=== PATIENT | female | born 1945 | race Caucasian/White ===

== ENCOUNTER 2018-06-23 21:51 | Emergency (ER) | payer MEDICARE, OTHER ==
[~2018-06-23] VITALS: Ht 162.6 cm; Wt 82.1 kg
[~2018-06-23 21:51] MED LIST: ATOR40TA59 PO; DULA0.75 SQ; GLIP10TA13 PO; HYDR12.53 PO; LOSA50TA7 PO; METF500T16 PO
[2018-06-23] MEDS ORDERED: amLODIPine BESYLATE 5 MG TABLET PO ONE (22:30)
[2018-06-23] MEDS ORDERED: ASPIRIN CHEWABLE 81 MG TABLET. PO ONE (22:30)
[2018-06-23] MEDS ORDERED: LORazepam 1 MG TABLET PO ONE (22:45)
[2018-06-23 22:55] LABS: BASO % 0 % (0-3); EOS # 0.1 x10^3/uL (0.0-0.7); EOS % 1 % (0-3); HEMATOCRIT 43.9 % (36.0-47.0); HEMOGLOBIN 15.2 g/dL (12.0-15.5); LYMPH # 1.5 x10^3/uL (1.0-4.8); LYMPH % 12 % (24-48); MEAN CORPUSCULAR HEMOGLOBIN 31 pg (25-35); MEAN CORPUSCULAR HGB CONC 35 g/dL (31-37); MEAN CORPUSCULAR VOLUME 91 fL (79-100); MONO # 0.8 x10^3/uL (0.0-1.1); MONO % 7 % (0-9); NEUT # 9.9 x10^3uL (1.8-7.7); NEUT % 80 % (31-73); PLATELET COUNT 220 x10^3/uL (140-400); RED BLOOD COUNT 4.85 x10^6/uL (3.50-5.40); RED CELL DISTRIBUTION WIDTH 13.6 % (11.5-14.5); WHITE BLOOD COUNT 12.4 x10^3/uL (4.0-11.0)
[2018-06-23 23:05] LABS: CALCIUM 10.7 mg/dL (8.5-10.1); GFR 54.5; POTASSIUM 4.2 mmol/L (3.5-5.1)
[2018-06-23 23:11] LABS: ALBUMIN/GLOBULIN RATIO 1.2 (1.0-1.7); TOTAL BILIRUBIN 0.4 mg/dL (0.2-1.0); TOTAL PROTEIN 7.4 g/dL (6.4-8.2)
[2018-06-23] MEDS ORDERED: cloNIDine HCL 0.1 MG TABLET PO ONE (23:30)
[2018-06-23 23:45] VITALS: BP 148/80
--- NOTE | 2018-06-24 00:04 | PHYS DOC ---
Past Medical History Past Medical History: Anxiety, Asthma, Diabetes-Type II, High Cholesterol, Hypertension Past Surgical History: Other Additional Past Surgical Histo: JAW SX SECONDARY TO FX Alcohol Use: None Drug Use: None Adult General Chief Complaint Chief Complaint: HYPERTENSION HPI HPI Patient is a 73 year old [ female was presenting with elevated blood pressure. She says that she can feel her blood pressure slowly going up throughout the day she feels flushed with palpitation she feels tightness in her chest that feels better when she puts her hand on it. She says she has no chest pain blood pressure was high up into the 180s. Review of Systems Review of Systems Constitutional: Denies fever or chills [] Eyes: Denies change in visual acuity, redness, or eye pain [] HENT: Denies nasal congestion or sore throat [] GI: Denies abdominal pain, nausea, vomiting, bloody stools or diarrhea [] : Denies dysuria or hematuria [] Musculoskeletal: Denies back pain or joint pain [] Integument: Denies rash or skin lesions [] Neurologic: Denies headache, focal weakness or sensory changes [] Endocrine: Denies polyuria or polydipsia [] All other systems were reviewed and found to be within normal limits, except as documented in this note. Current Medications Current Medications Current Medications Medications (Trade) Dose Ordered Sig/Librado Start Time Stop Time Status Last Admin Dose Admin Amlodipine Besylate (Norvasc) 10 mg 1X ONCE 06/23/18 22:30 06/23/18 22:31 DC 06/23/18 22:51 10 MG Aspirin (Children'S Aspirin) 324 mg 1X ONCE 06/23/18 22:30 06/23/18 22:31 DC 06/23/18 22:50 324 MG Clonidine HCl (Catapres) 0.2 mg 1X ONCE 06/23/18 23:30 06/23/18 23:31 DC 06/23/18 23:35 0.2 MG Lorazepam (Ativan) 1 mg 1X ONCE 06/23/18 22:45 06/23/18 22:46 DC Allergies Allergies Allergies Coded Allergies Type Severity Reaction Last Updated Verified aminophylline Adverse Reaction Intermediate Anxiety 10/29/15 Yes codeine Adverse Reaction Intermediate Nausea and Vomiting 10/29/15 Yes Physical Exam Physical Exam Constitutional: Well developed, well nourished, no acute distress, non-toxic appearance. [] HENT: Normocephalic, atraumatic, bilateral external ears normal, oropharynx moist, no oral exudates, nose normal. [] Eyes: PERRLA, EOMI, conjunctiva normal, no discharge. [] Neck: Normal range of motion, no tenderness, supple, no stridor. [] Cardiovascular:Heart rate regular rhythm, no murmur [] Lungs & Thorax: Bilateral breath sounds clear to auscultation [] Abdomen: Bowel sounds normal, soft, no tenderness, no masses, no pulsatile masses. [] Skin: Warm, dry, no erythema, no rash. [] Back: No tenderness, no CVA tenderness. [] Extremities: No tenderness, no cyanosis, no clubbing, ROM intact, no edema. [] Neurologic: Alert and oriented X 3, normal motor function, normal sensory function, no focal deficits noted. [] Psychologic: Affect normal, judgement normal, mood anxious Current Patient Data Vital Signs Vital Signs Date Time Temp Pulse Resp B/P (MAP) Pulse Ox O2 Delivery O2 Flow Rate FiO2 06/23/18 23:35 90 190/70 06/23/18 22:10 97.9 24 98 Room Air 97.9 Lab Values Laboratory Tests Test 06/23/18 22:44 White Blood Count 12.4 x10^3/uL (4.0-11.0) H Red Blood Count 4.85 x10^6/uL (3.50-5.40) Hemoglobin 15.2 g/dL (12.0-15.5) Hematocrit 43.9 % (36.0-47.0) Mean Corpuscular Volume 91 fL (79-100) Mean Corpuscular Hemoglobin 31 pg (25-35) Mean Corpuscular Hemoglobin Concent 35 g/dL (31-37) Red Cell Distribution Width 13.6 % (11.5-14.5) Platelet Count 220 x10^3/uL (140-400) Neutrophils (%) (Auto) 80 % (31-73) H Lymphocytes (%) (Auto) 12 % (24-48) L Monocytes (%) (Auto) 7 % (0-9) Eosinophils (%) (Auto) 1 % (0-3) Basophils (%) (Auto) 0 % (0-3) Neutrophils # (Auto) 9.9 x10^3uL (1.8-7.7) H Lymphocytes # (Auto) 1.5 x10^3/uL (1.0-4.8) Monocytes # (Auto) 0.8 x10^3/uL (0.0-1.1) Eosinophils # (Auto) 0.1 x10^3/uL (0.0-0.7) Basophils # (Auto) 0.0 x10^3/uL (0.0-0.2) Sodium Level 139 mmol/L (136-145) Potassium Level 4.2 mmol/L (3.5-5.1) Chloride Level 103 mmol/L (98-107) Carbon Dioxide Level 22 mmol/L (21-32) Anion Gap 14 (6-14) Blood Urea Nitrogen 30 mg/dL (7-20) H Creatinine 1.0 mg/dL (0.6-1.0) Estimated GFR (Cockcroft-Gault) 54.5 BUN/Creatinine Ratio 30 (6-20) H Glucose Level 178 mg/dL (70-99) H Calcium Level 10.7 mg/dL (8.5-10.1) H Total Bilirubin 0.4 mg/dL (0.2-1.0) Aspartate Amino Transferase (AST) 17 U/L (15-37) Alanine Aminotransferase (ALT) 26 U/L (14-59) Alkaline Phosphatase 127 U/L (46-116) H Troponin I Quantitative < 0.017 ng/mL (0.000-0.055) Total Protein 7.4 g/dL (6.4-8.2) Albumin 4.0 g/dL (3.4-5.0) Albumin/Globulin Ratio 1.2 (1.0-1.7) Laboratory Tests 06/23/18 22:44 Laboratory Tests 06/23/18 22:44 EKG EKG EKG shows normal sinus rhythm rate of 98 no acute ischemic changes noted interpreted by me the time of encounter intervals appear normal.[] Radiology/Procedures Radiology/Procedures [] Impressions: Chest x-ray negative probably atelectasis at the left lung base Course & Med Decision Making Course & Med Decision Making Pertinent Labs and Imaging studies reviewed. (See chart for details) []This is a 73-year-old female who is presenting to the emergency room with chief complaint elevated blood pressure she has felt some palpitations as well as flushing. Troponin negative EKG looked fine blood pressure down to 148 range after treatment. I counseled the patient in detail about the importance of checking her blood pressure once a day return precautions to the emergency room for blood pressures that are over 200 or any new or concerning symptoms otherwise follow-up with primary care doctor next week for recheck. Dragon Disclaimer Dragon Disclaimer This electronic medical record was generated, in whole or in part, using a voice recognition dictation system. Departure Departure Impression: Primary Impression: Elevated blood pressure reading Disposition: HOME, SELF-CARE Condition: IMPROVED Patient Instructions: Hypertension, [id number] RICHARD COPELAND MD Jun 24, 2018 00:04
--- NOTE | 2018-06-24 09:34 | RAD ---
EXAM: PORTABLE CHEST 1V DATE: 06/23/2018 10:36 PM INDICATION: HTN, short of breath and dizzy today COMPARISON: No Prior FINDINGS: There is mild rightward deviation of the trachea suspicious for thoracic inlet mass or enlarged thyroid. The heart is not enlarged. Mediastinal and hilar contours are normal. No focal parenchymal airspace opacity. No pleural effusion or pneumothorax. Old posterolateral right rib fractures are seen. IMPRESSION: 1. There is mild rightward deviation of the trachea suspicious for thoracic inlet mass or enlarged thyroid. This can be further assessed by a CT chest and/or thyroid ultrasound. 2. Otherwise no evidence of acute cardiopulmonary process. Electronically signed by: Rey James MD (06/24/2018 9:31 AM) [facility]
--- NOTE | 2018-06-25 09:34 | EKG ---
[facility] [address] [place] [address] Test Date: 2018-06-23 Test Time: 22:40:37 Pat Name: MARK COBURN Department: Room: Gender: F Director Career Services: : 1945 Requested By: RICHARD COPELAND Order Number: [id number] Reading MD: Alvarez Lam MD Measurements Intervals [place] Rate: 98 P: 44 ID: [id number] QRS: -4 QRSD: 86 T: 22 QT: 344 QTc: 441 Interpretive Statements SINUS RHYTHM Electronically Signed On 06-27-2018 12:10:36 CDT by Alvarez Lam MD
== END 2018-06-24 00:12 | disposition home or self-care (01) ==
LOC: ER 21:51
DX: R03.0 Elevated blood-pressure reading, without diagnosis of hypertension (principal); R00.2 Palpitations; R07.89 Other chest pain; E78.00 Pure hypercholesterolemia, unspecified; E11.9 Type 2 diabetes mellitus without complications; I10 Essential (primary) hypertension; J45.909 Unspecified asthma, uncomplicated; F41.9 Anxiety disorder, unspecified; Z88.5 Allergy status to narcotic agent
CPT/HCPCS: 36415; 71045; 80053; 84484; 85025; 93005; 99285-25

== ENCOUNTER → 2018-08-01 | Outpatient (CLI) | payer MEDICARE, OTHER ==
[~2018-08-01] MED LIST changes: +REGADENOSON 0.4 MG/5 ML DISP.SYRIN. IV ONE
--- NOTE | 2018-08-01 11:07 | CARD ---
MR#: [id number] Date of Study: 08/01/2018 Ordering Physician: QUENTIN NORMAN, Referring Physician: QUENTIN NORMAN, Tech: Ruthie Mccloud APPROVED REPORT EXAM: Two-dimensional and M-mode echocardiogram with Doppler and color Doppler. Other Information Quality : AverageHR: 83bpm INDICATION Palpitations RISK FACTORS Hypertension Hyperlipidemia Diabetes 2D DIMENSIONS RVDd1.7 (2.9-3.5cm)Left Atrium(2D)3.8 (1.6-4.0cm) IVSd1.1 (0.7-1.1cm)Aortic Root(2D)2.9 (2.0-3.7cm) LVDd4.5 (3.9-5.9cm)LVOT Diameter2.2 (1.8-2.4cm) PWd1.1 (0.7-1.1cm)LVDs2.5 (2.5-4.0cm) FS (%) 45.2 %SV70.0 ml LVEF(%)76.7 (>50%) Aortic Valve AoV Peak Emre.140.0cm/sAoV VTI32.6cm AO Peak GR.7.8mmHgLVOT Peak Emre.95.8cm/s AO Mean GR.5mmHgAVA (VMAX)2.53cm2 Mitral Valve MV E Vspgasqk38.9cm/sMV DECEL [id number] MV A Ejjolwjv650.5cm/sE/A Ratio0.7 Pulmonary Valve PV Peak Usdlqmeo90.7cm/s Pulmonary Vein PVa [id number] LEFT VENTRICLE The left ventricle is normal size. There is normal left ventricular wall thickness. The left ventricu lar systolic function is normal. The Ejection Fraction is 60-65%. There is normal LV segmental wall m otion. Transmitral Doppler flow pattern is Grade I-abnormal relaxation pattern. RIGHT VENTRICLE The right ventricle is normal size. There is normal right ventricular wall thickness. The right ventr icular systolic function is normal. ATRIA The left atrium size is normal. The right atrium size is normal. The interatrial septum is intact wit h no evidence for an atrial septal defect or patent foramen ovale as noted on 2-D or Doppler imaging. AORTIC VALVE The aortic valve is not well visualized. Doppler and Color Flow revealed trace aortic regurgitation. Calculated aortic valve area is 3 cm2 with maximum pressure gradient of 8 mmHg and mean pressure grad ient of 6 mmHg. MITRAL VALVE The mitral valve is thickened but opens well. There is no mitral valve stenosis. Doppler and Color-fl ow revealed trace mitral regurgitation. TRICUSPID VALVE The tricuspid valve is not well visualized. Doppler and Color Flow revealed no tricuspid valve regurg itation noted. There is no tricuspid valve stenosis. PULMONIC VALVE The pulmonic valve is not well visualized. Doppler and Color Flow revealed no pulmonic valvular regur gitation. GREAT VESSELS The aortic root is normal in size. The IVC is normal in size and collapses >50% with inspiration. PERICARDIAL EFFUSION There is no evidence of significant pericardial effusion. Critical Notification Critical Value: No <Conclusion> The left ventricular systolic function is normal. The Ejection Fraction is 60-65%. There is normal LV segmental wall motion. Transmitral Doppler flow pattern is Grade I-abnormal relaxation pattern. Trace mitral regurgitation. There is no evidence of significant pericardial effusion. Signed by : Quentin Norman, Electronically Approved : 08/01/2018 11:07:02
--- NOTE | 2018-08-01 16:29 | RAD ---
MR#: [id number] Date of Study: 08/01/2018 Ordering Physician: QUENTIN RICO Referring Physician: JOHN FERNANDO Tech: RT Gentry (R) (N) APPROVED REPORT Test Type: Pharmacological Stress Nurse/Tech: Eugenio Flores RN Test Indications: HTN, Palpitations Cardiac History: HTN, DM, Medications: See Electronic Medical Record Medical History: See Electronic Medical Record Resting ECG: SR Resting Heart Rate: 77 bpm Resting Blood Pressure: 156/63mmHg Pretest Chest Pain: No chest pain Nurse/Tech Notes Lungs CTA, S1S2 Consent: The procedure was explained to the patient in lay terms. Informed consent was witnessed. Rudy eout was entered into [employer]. History and Stress Test performed by Eugenio Flores RN Pharm. Details Pharmacologic stress testing was performed using 0.4mg per 5ml of regadenoson given intravenously ove r 7-10 seconds. Stress Symptoms Dyspnea, Flushing, no chest pain POST EXERCISE Reason for Termination: Infusion complete Max HR: 122 bpm Max Blood Pressure: 157/70mmHg Blood Pressure response to exercise: Normal blood pressure response during stress. Heart Rate response to exercise: normal response Chest Pain: No. Arrhythmia: No. ST Change: No. INTERPRETATION Stress EKG Conclusion: No evidence of stress induced EKG changes. Imaging Protocol IMAGE PROTOCOL: Rest Tc-99m/stress Tc-99m 1 day Rest: Stress: Viability: Radiopharm.Tc99m QgwpsqmnwVi65p Sestamibi Dose10.5mCi 35mCi Duration 13.5min. 13.5min. Img Date 08/01/2018 08/01/2018 Inj-Img [id number]. 60min. Rest Admin Site:IV - Right AntecubitalAdministrator:RT Gentry (R)(N) Stress Admin Site: IV - Right AntecubitalAdministrator: RT Tanvir (R)(N) STRESS DATA End Diast. Vol.46.0mlAv. Heart Tfkp489.0bpm LVEDV index BSA25.0mlCardiac Output0.0L/min End Syst. Vol.1.0mlCO Index BSA0.0L/min LVESV index BSA0.0mlMyocardial Mass92.0g Eject. Isbbuypp82.0% Stress Scores Regional WT0.00Summed WT0.00 Regional WM0.00Summed WM0.00 The rest and stress images show normal perfusion, normal contraction and thickening. LV Perf. Quant 17 Seg. SSS0.00 17 Seg. SRS1.00 17 Seg. SDS0.00 Stress Defect Extent (% LAD)0.00Rest Defect Extent (% LAD)0.00Rev. Defect Extent (% LAD)0.00 Stress Defect Extent (% LCX) 0.00Rest Defect Extent (% LCX)0.00Rev. Defect Extent (% LCX)0.00 Stress Defect Extent (% RCA)0.00Rest Defect Extent (% RCA)0.00Rev. Defect Extent (% RCA)0.00 Stress Defect Extent (% CHUCK)0.00Rest Defect Extent (% CHUCK)0.00Rev. Defect Extent (% CHUCK)0.00 Other Information Quality:Average Risk Assessment: Low Risk Conclusion 1. No evidence of EKG changes with stress testing. 2. Normal perfusion at stress/rest. 3. Low risk study. 4. EF > 60%. Signed by : Alvarez Lam, Electronically Approved : 08/01/2018 16:28:13
== END | disposition home or self-care (01) ==
LOC: NM 08:31
PROVIDERS: ATTEND Internal Medicine Cardiovascular Disease
DX: R00.2 Palpitations (principal); I10 Essential (primary) hypertension
CPT/HCPCS: 78452; 93017; 93225; 93306; 96374; 96375; 96376; A9500; J2785

== ENCOUNTER 2018-10-08 16:27 | Emergency (ER) | payer MEDICARE ==
[~2018-10-08] VITALS: Ht 162.6 cm; Wt 82.1 kg
[~2018-10-08 16:27] MED LIST changes: -HYDR12.53 PO; +HYDR12.575 PO; +LOSA-73 PO; -LOSA50TA7 PO; -REGADENOSON 0.4 MG/5 ML DISP.SYRIN. IV ONE
--- NOTE | 2018-10-08 17:06 | EKG ---
[facility] [address] [place] [address] Test Date: 2018-10-08 Test Time: 17:02:13 Pat Name: MARK COBURN Department: Room: Gender: F Cardroom Drawing Runner: TW : 1945 Requested By: DEREK JAVIER Order Number: [id number] Reading MD: Measurements Intervals [employer] Rate: 95 P: 27 MS: 172 QRS: -7 QRSD: 84 T: 12 QT: 342 QTc: 433 Interpretive Statements SINUS RHYTHM LEFTWARD AXIS OTHERWISE NORMAL ECG RI6.01 Compared to ECG 06/23/2018 22:40:37 Left-axis deviation now present
[2018-10-08 17:07] LABS: BILIRUBIN,URINE NEGATIVE (NEG); CLARITY,URINE CLEAR; COLOR,URINE YELLOW; NITRITE,URINE POSITIVE (NEG); PH,URINE 5.5; PROTEIN,URINE NEGATIVE (NEG-TRACE); UROBILINOGEN,URINE 0.2 mg/dL (0.2 mg/dL)
[2018-10-08 17:13] LABS: BASO % 1 % (0-3); EOS # 0.1 x10^3/uL (0.0-0.7); EOS % 2 % (0-3); HEMATOCRIT 42.9 % (36.0-47.0); HEMOGLOBIN 15.3 g/dL (12.0-15.5); LYMPH # 1.8 x10^3/uL (1.0-4.8); LYMPH % 24 % (24-48); MEAN CORPUSCULAR HEMOGLOBIN 33 pg (25-35); MEAN CORPUSCULAR HGB CONC 36 g/dL (31-37); MEAN CORPUSCULAR VOLUME 91 fL (79-100); MONO # 0.8 x10^3/uL (0.0-1.1); MONO % 10 % (0-9); NEUT # 4.9 x10^3uL (1.8-7.7); NEUT % 64 % (31-73); PLATELET COUNT 214 x10^3/uL (140-400); RED BLOOD COUNT 4.72 x10^6/uL (3.50-5.40); RED CELL DISTRIBUTION WIDTH 13.6 % (11.5-14.5); WHITE BLOOD COUNT 7.7 x10^3/uL (4.0-11.0)
--- NOTE | 2018-10-08 17:15 | PHYS DOC ---
Past Medical History Past Medical History: Anxiety, Asthma, Diabetes-Type II, High Cholesterol, Hypertension Past Surgical History: Other Additional Past Surgical Histo: JAW SX SECONDARY TO FX Alcohol Use: None Drug Use: None Adult General Chief Complaint Chief Complaint: ANXIETY/PANIC ATTACK HPI HPI Patient is a 73-year-old female who presents to the emergency department for evaluation. She states that for the past 3 months, she has been having symptoms that have not yielded a diagnosis. She states that at the beginning of June , she began experiencing episodes where she describes that she was having a "tremor", but more inside her body than without. She states she would have these episodes where she would suddenly feel anxious, sweaty, and her heart rate would increase. She went to see a fibre optic cable splicer, and had stress testing done , and was told that she simply had sinus tachycardia and was given propranolol. She states that she has had blood pressure for the past 15 or so years, concurrent with her diabetes, but she states that her blood pressure has been harder to control recently. She has not had any pain, denies any headache. She states that she has had some generalized vision changes over the past few days as well. She reports generalized blurry vision. She has not had any numbness or weakness, or shortness of breath. She states that she saw her primary care provider who referred her initially to a fibre optic cable splicer as above, and then to an freight flagman. She states she saw the freight flagman in June, who ordered some testing of her parathyroid (the patient states she was found to have hyperkalemia) as well as a 24-hour urine calcium as well as an ionized calcium. She states that her episodes have been happening somewhat more frequently and becoming more intense recently. She does presents to the emergency department for reevaluation of the same symptoms. She states that she has never had an anxiety problem in the past. While in the emergency department, the patient did develop a splotchy rash on the right hand dorsally, which appears to be numerous punctate macular lesions. This was not present on my initial assessment of the patient but did develop soon after I left the exam room after her initial evaluation. Review of Systems Review of Systems Constitutional: Denies fever or chills [] Eyes: Denies ocular discharge, redness, or eye pain [] HENT: Denies nasal congestion or sore throat [] Respiratory: Denies cough or shortness of breath [] Cardiovascular: No additional information not addressed in HPI [] GI: Denies abdominal pain, nausea, vomiting, bloody stools or diarrhea [] : Denies dysuria or hematuria [] Musculoskeletal: Denies back pain or joint pain [] Integument: Denies rash or skin lesions [] Neurologic: Denies headache, focal weakness or sensory changes [] Endocrine: Admits to polyuria and polydipsia [] All other systems were reviewed and found to be within normal limits, except as documented in this note. Current Medications Current Medications Current Medications Medications (Trade) Dose Ordered Sig/Librado Start Time Stop Time Status Last Admin Dose Admin Ceftriaxone Sodium (Rocephin) 1 gm 1X ONCE 10/08/18 18:00 10/08/18 18:01 DC Lorazepam (Ativan) 1 mg 1X ONCE 10/08/18 17:00 10/08/18 17:01 DC 10/08/18 17:09 1 MG Allergies Allergies Allergies Coded Allergies Type Severity Reaction Last Updated Verified aminophylline Adverse Reaction Intermediate Anxiety 10/29/15 Yes codeine Adverse Reaction Intermediate Nausea and Vomiting 10/29/15 Yes Physical Exam Physical Exam PHYSICAL EXAM: CONSTITUTIONAL: Well developed, well nourished HEAD: normocephalic, atraumatic EENT: PERRL, EOMI. Conjunctivae normal color, sclerae non-icteric; moist mucous membranes. NECK: Supple, non-tender; no meningismus. LUNGS: Lungs CTA, breathing even and unlabored. Normal air movement. HEART: Mild tachycardia, no murmur CHEST: No deformity; non-tender ABDOMEN: The abdomen is soft, and non-tender, no masses or bruits. EXTREM: Normal ROM; no deformity, no calf tenderness. Normal pulses palpable in all extremities. There is no pedal edema. SKIN: There is a diffuse punctate macular erythematous rash on the dorsal aspect of the right hand which developed during the ER evaluation. There is no other rash; no diaphoresis NEURO: Alert; normal speech and cognition; CN's grossly intact; strength grossly intact without focal deficit. Vision grossly intact. BACK: No CVA TTP. PSYCHIATRIC: The patient exhibits mildly anxious affect. Current Patient Data Vital Signs Vital Signs Date Time Temp Pulse Resp B/P (MAP) Pulse Ox O2 Delivery O2 Flow Rate FiO2 12/23/18 16:47 97.9 109 11 191/83 (119) 97 Room Air 97.9 Lab Values Laboratory Tests Test 10/08/18 16:36 10/08/18 17:05 Urine Collection Type Unknown Urine Color Yellow Urine Clarity Clear Urine pH 5.5 Urine Specific Herman >=1.030 Urine Protein Negative mg/dL (NEG-TRACE) Urine Glucose (UA) >=1000 mg/dL (NEG) Urine Ketones (Stick) Negative mg/dL (NEG) Urine Blood Moderate (NEG) Urine Nitrite Positive (NEG) Urine Bilirubin Negative (NEG) Urine Urobilinogen Dipstick 0.2 mg/dL (0.2 mg/dL) Urine Leukocyte Esterase Small (NEG) Urine RBC 6-10 /HPF (0-2) Urine WBC >40 /HPF (0-4) Urine Squamous Epithelial Cells Mod /LPF Urine Bacteria Many /HPF (0-FEW) White Blood Count 7.7 x10^3/uL (4.0-11.0) Red Blood Count 4.72 x10^6/uL (3.50-5.40) Hemoglobin 15.3 g/dL (12.0-15.5) Hematocrit 42.9 % (36.0-47.0) Mean Corpuscular Volume 91 fL (79-100) Mean Corpuscular Hemoglobin 33 pg (25-35) Mean Corpuscular Hemoglobin Concent 36 g/dL (31-37) Red Cell Distribution Width 13.6 % (11.5-14.5) Platelet Count 214 x10^3/uL (140-400) Neutrophils (%) (Auto) 64 % (31-73) Lymphocytes (%) (Auto) 24 % (24-48) Monocytes (%) (Auto) 10 % (0-9) H Eosinophils (%) (Auto) 2 % (0-3) Basophils (%) (Auto) 1 % (0-3) Neutrophils # (Auto) 4.9 x10^3uL (1.8-7.7) Lymphocytes # (Auto) 1.8 x10^3/uL (1.0-4.8) Monocytes # (Auto) 0.8 x10^3/uL (0.0-1.1) Eosinophils # (Auto) 0.1 x10^3/uL (0.0-0.7) Basophils # (Auto) 0.0 x10^3/uL (0.0-0.2) Sodium Level 138 mmol/L (136-145) Potassium Level 3.9 mmol/L (3.5-5.1) Chloride Level 102 mmol/L (98-107) Carbon Dioxide Level 24 mmol/L (21-32) Anion Gap 12 (6-14) Blood Urea Nitrogen 28 mg/dL (7-20) H Creatinine 1.1 mg/dL (0.6-1.0) H Estimated GFR (Cockcroft-Gault) 48.8 BUN/Creatinine Ratio 25 (6-20) H Glucose Level 209 mg/dL (70-99) H Calcium Level 10.6 mg/dL (8.5-10.1) H Magnesium Level 1.8 mg/dL (1.8-2.4) Total Bilirubin 0.5 mg/dL (0.2-1.0) Aspartate Amino Transferase (AST) 15 U/L (15-37) Alanine Aminotransferase (ALT) 33 U/L (14-59) Alkaline Phosphatase 99 U/L (46-116) Troponin I Quantitative < 0.017 ng/mL (0.000-0.055) Total Protein 7.7 g/dL (6.4-8.2) Albumin 3.9 g/dL (3.4-5.0) Albumin/Globulin Ratio 1.0 (1.0-1.7) Thyroid Stimulating Hormone (TSH) 0.828 uIU/mL (0.358-3.74) Free Thyroxine 1.32 ng/dL (0.76-1.46) Laboratory Tests 10/08/18 17:05 Laboratory Tests 10/08/18 17:05 EKG EKG [Normal sinus rhythm rate of 95 beats for minute, left axis deviation, normal intervals, there are no acute ischemic ST/T changes.] Radiology/Procedures Radiology/Procedures [PROCEDURE: CT HEAD WO CONTRAST CT brain without contrast. HISTORY: Altered mental status CT scan of brain was done without contrast. There is no intracranial hemorrhage or subdural hematoma. Ventricles are normal in size. There is a partially calcified lesion on the inner table of the skull on the left suggesting an meningioma measuring 1.1 cm. There is no brain edema. There is no other mass or shift of the midline. Sinuses are clear. IMPRESSION: 1. Small left meningioma. 2. No intracranial hemorrhage or other acute finding. ] ER physician preliminary chest x-ray interpretation: No acute disease. Course & Med Decision Making Course & Med Decision Making Pertinent Labs and Imaging studies reviewed. (See chart for details) [5:10 PM: Initial evaluation the emergency Department reveals a patient who has had symptoms of autonomic instability which have developed over the past 3 months, in the setting of worsening blood pressure, and reported hypercalcemia. She was promptly propranolol by her fibre optic cable splicer for states he has not really affected her symptoms. The exact etiology of the patient's symptoms is unknown, but initial evaluation the emergency department will be undertaken. I do question whether the patient might have a pheochromocytoma, and did discuss this with the patient and her son, and if she is discharged in the emergency department she will likely need 24-hour urine collection for metanephrines. Further plan of care will be developed after the patient's test results are available.] 6:10 PM: The patient's condition remained stable. Her blood pressure improved to the 140s, her heart rate to the 90s. It is unusual that she would develop anxiety disorder at her age, I do think she warrants evaluation for another endocrinopathy, possibly a pheochromocytoma. I discussed this with the patient and her family, the importance of close follow-up for further outpatient evaluation and urine collection, and return precautions. I also discussed the evidence of UTI, and she'll be treated for such. Dragon Disclaimer Dragon Disclaimer This electronic medical record was generated, in whole or in part, using a voice recognition dictation system. Departure Departure Impression: Primary Impression: Tremor Additional Impressions: Anxiety Hypertension Urinary tract infection Disposition: 01 HOME, SELF-CARE Condition: STABLE Referrals: KRISTEL SINGH MD (PCP) Patient Instructions: Hypertension, Tremor, Urinary Tract Infection Additional Instructions: Further outpatient evaluation by her primary care provider freight flagman is warranted. It is certainly possibly her symptoms might be due to an underlying endocrine disorder, such as a pheochromocytoma. Further evaluation and testing for such, likely by 24-hour urine metanephrine testing is warranted. Contact your primary care provider and freight flagman to arrange further outpatient evaluation. Continue taking your previously prescribed medications. Scripts Ondansetron Hcl (ZOFRAN) 4 Mg Tablet 1 TAB PO Q6HRS PRN for NAUSEA/VOMITING, #20 TAB Prov: DEREK JAVIER MD 10/08/18 Sulfamethoxazole/Trimethoprim (BACTRIM DS TABLET) 1 Each Tablet 1 TAB PO BID, #14 TAB Prov: DEREK JAVIER MD 10/08/18 Problem Qualifiers DEREK JAVIER MD Oct 08, 2018 17:15
[2018-10-08 17:16] LABS: BACTERIA,URINE MANY /HPF (0-FEW); SQUAMOUS EPITHELIAL CELL,UR MOD /LPF; WBC,URINE >40 /HPF (0-4)
[2018-10-08 17:23] LABS: CALCIUM 10.6 mg/dL (8.5-10.1); CREATININE 1.1 mg/dL (0.6-1.0); GFR 48.8; POTASSIUM 3.9 mmol/L (3.5-5.1)
[2018-10-08 17:29] LABS: ALBUMIN 3.9 g/dL (3.4-5.0); MAGNESIUM 1.8 mg/dL (1.8-2.4); TOTAL BILIRUBIN 0.5 mg/dL (0.2-1.0); TOTAL PROTEIN 7.7 g/dL (6.4-8.2)
--- NOTE | 2018-10-08 17:35 | RAD ---
CT brain without contrast. HISTORY: Altered mental status CT scan of brain was done without contrast. There is no intracranial hemorrhage or subdural hematoma. Ventricles are normal in size. There is a partially calcified lesion on the inner table of the skull on the left suggesting an meningioma measuring 1.1 cm. There is no brain edema. There is no other mass or shift of the midline. Sinuses are clear. IMPRESSION: 1. Small left meningioma. 2. No intracranial hemorrhage or other acute finding. Electronically signed by: Paulo Kelsey MD (10/08/2018 5:31 PM) [facility]
[2018-10-08 17:36] LABS: FREE T4 1.32 ng/dL (0.76-1.46); THYROID STIM HORMONE (TSH) 0.828 uIU/mL (0.358-3.74)
[2018-10-08] MEDS ORDERED: cefTRIAXone IV Push 1 GM VIAL. IVP ONE (18:00)
[2018-10-08 18:02] VITALS: BP 149/66
[2018-10-08] MEDS ORDERED: SULF1TAB24 PO (18:17)
[2018-10-08] MEDS ORDERED: ONDA4TAB7 PO (18:17)
--- NOTE | 2018-10-08 19:20 | RAD ---
Portable AP chest. HISTORY: Weakness AP view was taken of the chest. There are old right rib fractures. There is linear scarring at the left lung base without change from an old study. There are no acute infiltrates. Heart is normal in size without heart failure. There is no effusion. 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 IMPRESSION: 1. No acute chest disease. 2. Prominent goiter. Electronically signed by: Paulo Kelsey MD (10/08/2018 7:16 PM) [facility]
== END 2018-10-08 18:30 | disposition home or self-care (01) ==
LOC: ER 16:27
DX: F41.9 Anxiety disorder, unspecified (principal); N39.0 Urinary tract infection, site not specified; R25.1 Tremor, unspecified; I10 Essential (primary) hypertension; D32.9 Benign neoplasm of meninges, unspecified; E78.00 Pure hypercholesterolemia, unspecified; E11.9 Type 2 diabetes mellitus without complications; J45.909 Unspecified asthma, uncomplicated; Z88.5 Allergy status to narcotic agent; Z88.8 Allergy status to other drugs, medicaments and biological substances
CPT/HCPCS: 36415; 70450; 71045; 80053; 81001; 83735; 84439; 84443; 84484; 85025; 87086; 93005; 96374; 96375; 99284; J0696; J2060

== ENCOUNTER → 2020-05-19 | Outpatient (CLI) | payer MEDICARE ==
[~2020-05-19] MED LIST changes: +ONDA4TAB7 PO; +SULF1TAB24 PO
--- NOTE | 2020-05-19 16:00 | CARD ---
MR#: [id number] Date of Study: 05/19/2020 Ordering Physician: QUENTIN NORMAN, Referring Physician: QUENTIN NORMAN, Tech: Ruthie Mccloud APPROVED REPORT EXAM: Two-dimensional and M-mode echocardiogram with Doppler and color Doppler. Other Information Quality : AverageHR: 85bpm INDICATION Hypertension/HCVD RISK FACTORS Hyperlipidemia Diabetes 2D DIMENSIONS Left Atrium(2D)4.1 (1.6-4.0cm)IVSd1.1 (0.7-1.1cm) Aortic Root(2D)3.0 (2.0-3.7cm)LVDd4.0 (3.9-5.9cm) LVOT Diameter2.0 (1.8-2.4cm)PWd1.2 (0.7-1.1cm) LVDs3.3 (2.5-4.0cm)FS (%) 16.4 % SV23.5 mlLVEF(%)34.9 (>50%) Aortic Valve AoV Peak Emre.155.9cm/sAoV VTI32.5cm AO Peak GR.9.7mmHgLVOT VTI 23.34cm AO Mean GR.5mmHg Mitral Valve MV E Eceifptz21.8cm/sMV E Peak Gr.4mmHg MV DECEL [id number] A Moiwkibh53.7cm/s MV E Mean Gr.2mmHgE/A Ratio0.8 TDI Lateral E' P. V9.91cm/sMedial E' P. V7.14cm/s E/Lateral E'8.4E/Medial E'11.6 Pulmonary Vein S1 Wmreacog59.3cm/sS2 Kzqtttlo31.78cm/s D2 Iphyovsu60.8cm/s LEFT VENTRICLE The left ventricle is normal size. There is borderline concentric left ventricular hypertrophy. The l eft ventricular systolic function is normal. The ejection fraction is 55-60%. There is normal LV segm ental wall motion. Transmitral Doppler flow pattern is Grade I-abnormal relaxation pattern. RIGHT VENTRICLE The right ventricle is normal size. There is normal right ventricular wall thickness. The right ventr icular systolic function is normal. ATRIA The left atrium size is normal. The right atrium size is normal. The interatrial septum is intact wit h no evidence for an atrial septal defect or patent foramen ovale as noted on 2-D or Doppler imaging. AORTIC VALVE The aortic valve is thickened but opens well. Doppler and Color Flow revealed trace aortic regurgitat ion. There is no significant aortic valvular stenosis. Calculated aortic valve area is 2.24 cm2 with maximum pressure gradient of 10 mmHg and mean pressure gradient of 5 mmHg. MITRAL VALVE The mitral valve is normal in structure and function. There is no evidence of mitral valve prolapse. There is no mitral valve stenosis. Doppler and Color-flow revealed trace mitral regurgitation. TRICUSPID VALVE The tricuspid valve is normal in structure and function. Doppler and Color Flow revealed no tricuspid valve regurgitation noted. There is no tricuspid valve stenosis. PULMONIC VALVE The pulmonic valve is not well visualized. Doppler and Color Flow revealed no pulmonic valvular regur gitation. GREAT VESSELS The aortic root is normal in size. The IVC is normal in size and collapses >50% with inspiration. PERICARDIAL EFFUSION There is no evidence of significant pericardial effusion. Critical Notification Critical Value: No <Conclusion> The left ventricular systolic function is normal. The ejection fraction is 55-60%. There is normal LV segmental wall motion. Transmitral Doppler flow pattern is Grade I-abnormal relaxation pattern. Trace mitral regurgitation. There is no evidence of significant pericardial effusion. Signed by : Quentin Norman, Electronically Approved : 05/19/2020 16:00:15
== END | disposition home or self-care (01) ==
LOC: ECHO 12:33
PROVIDERS: ATTEND Internal Medicine Cardiovascular Disease
DX: I10 Essential (primary) hypertension (principal)
CPT/HCPCS: 93306

== ENCOUNTER → 2020-05-30 | Outpatient (CLI) | payer MEDICARE ==
--- NOTE | 2020-05-31 11:44 | RAD ---
MR#: [id number] Date of Study: 05/30/2020 Ordering Physician: QUENTIN RICO, Referring Physician: QUENTIN RICO, Tech: Ruthie Chávez RDMS, ESTRELLA, RTR APPROVED REPORT Patient Location : OUT-PATIENT Indications Lower Extremity Pain : Bilateral Greater Saphenous Veins (GSV) Significant venous relux noted in the RIGHT GSV at the following levels : Superficial Femoral Junctio n, Proximal Thigh, Mid Thigh, Distal Thigh, Proximal Calf, Mid Calf, Distal Calf Findings Grayscale images of the bilateral saphenofemoral junctions are grossly unremarkable. The right great saphenous vein has significant reflux at 3.6 seconds and measures approximately 5 mm. The right lesser saphenous vein is occluded. The left greater saphenous vein and left lesser saphe nous veins are negative for reflux. Critical Notification Critical Value: No <Conclusion> 1. Positive for right great saphenous vein reflux 2. Incidental superficial thrombosis of the right small saphenous vein Signed by : Alvarez Lam, Electronically Approved : 05/31/2020 11:44:05
--- NOTE | 2020-05-31 11:46 | RAD ---
MR#: [id number] Date of Study: 05/30/2020 Ordering Physician: QUENTIN RICO, Referring Physician: QUENTIN RICO, Tech: Ruthie Chávez, FUENTES, RVT, RTR APPROVED REPORT Patient Location: OUT-PATIENT Indications Rest Pain:Bilaterally VELOCITY AND DOPPLER WAVEFORM ANALYSIS RIGHT cm/secWaveformSeverity LEFT cm/secWaveform Severity dCFA 104.9dCFA 110.5 Prof Fem Art. 80.2Prof Fem Art. 65.1 Fem Art Prox. 87.6Fem Art Prox. 159.6 Fem Art Mid. 90.9Fem Art Mid. 112.2 Fem Art Dist. 79.3Fem Art Dist. 98.1 Pop Art(AK) 95.9Pop Art(AK) 90.7 CHEF CONCIERGE Prox. 103.3PTA Prox. 61.5 CHEF CONCIERGE Dist. 82.4PTA Dist. 90.4 Per Art Prox. 82.4Per Art Prox. 79.8 KHOA Prox. 88.2ATA Prox. 93.3 DPA 64DPA 93 Findings Grayscale images of the bilateral lower extremity arterial vessels demonstrates mild diffuse irregula rities. No significant arterial occlusive disease identified. There is three-vessel runoff below the knee. Waveforms are mostly biphasic and triphasic. Critical Notification Critical Value: No <Conclusion> 1. No significant lower extremity arterial disease bilaterally Signed by : Alvarez Lam, Electronically Approved : 05/31/2020 11:45:37
== END | disposition home or self-care (01) ==
LOC: US 12:46
PROVIDERS: ATTEND Internal Medicine Cardiovascular Disease
DX: I82.811 Embolism and thrombosis of superficial veins of right lower extremity (principal); M79.605 Pain in left leg; M79.604 Pain in right leg
CPT/HCPCS: 93925; 93970

== ENCOUNTER → 2020-08-04 | Outpatient (CLI) | payer MEDICARE ==
--- NOTE | 2020-08-04 13:40 | CARD ---
MR#: [id number] Date of Study: 08/04/2020 Ordering Physician: QUENTIN NORMAN, Referring Physician: QUENTIN NORMAN, Tech: Ruthie Chávez RVT; Samir ESPINOZA APPROVED REPORT Patient StatusOUT-PATIENT Bar Host: Ruthie Chávez RVT; Samir LOPEZ;NINA Procedure(s) performed: Endovenous Vena Seal ablation of the Right greater saphenous vein. INDICATION FOR PROCEDURE The indication(s) include : Symptomatic Chronic Venous Insufficiency with hypertension and inflammati on, Varicose Veins, lower extremity pain and edema. PROCEDURE NARRATIVE After explaining the risks, benefits and alternative options, informed consent was obtained from gustavo ent. Patient was brought to the procedure suite and duplex ultrasound was used to map out the insuffi cient saphenous vein. The access site was determined and marked on the overlying skin. The depth and diameter of the vein (s) to be treated was documented. The patient was placed supine on the procedure table and the leg was prepped and draped using sterile technique. Ultrasound guidance was again used to localize the access site. 1% lidocaine was injected into the sk in and subcutaneous tissues for local anesthesia. Using ultrasound guidance, access was obtained in t he saphenous vein with a 19-gauge thin-walled needle followed by introduction of a short guidewire. T he intraluminal location was confirmed with ultrasound and a 7 [place] 7 cm sheath was inserted into t he vein. A 0.035 inch guidewire from the Venaseal kit was then introduced and positioned at the saphe nofemoral junction using ultrasound guidance. The 80 cm 7 [place] introducer sheath/dilator was positi oned 5 cm from the saphenofemoral junction. The guidewire and dilator were removed and the remaining sheath was flushed with sterile saline, with the syringe remaining in place prior to the next steps. The Cyanoacrylate adhesive was loaded into a 3 cc syringe that was then attached to the 5F delivery c athter and loaded on to the Dispenser gun.The catheter was primed precisely and this 'assembly' was i ntroduced through the 7 [place] sheath and positioned 5 cm caudal to the saphenofemoral junction under ultrasound guidance. While applying compression cephalad to the cathter tip with the ultrasound zimmerman sducer, 0.10 cc of the VenaSeal adhesive was delivered into the vein by pulling the trigger of the di anu gun. The catheter was pulled back 1 cm and another 0.10 cc of the adhesive was delivered foll owing which the catheter was pulled back 3 cm. Compression was applied over the vein for 3 minutes. T he catheter tip position was confirmed again using the ultrasound, 0.10 cc Venaseal adhesive delivere d, catheter pulled back 3 cm and compression applied for 30 seconds. These steps were repeated to tr eat the entire length of the incompetent vein. Following the last injection and compression sequence, the catheter and introducer sheath were pulled out from the access site. Hemostasis was achieved with manual compression and an adhesive bandage wa s applied to the incision. Ultrasound confirmed complete coaptation and closure of the treated segmen ts of the greater saphenous vein, and the absence of any DVT at the saphenofemoral junction. Treated vein length was 52cm. The drapes were removed and the patient cleaned and prepared for discharge. Patient tolerated the pro cedure well. There were no immediate complications. Postop ultrasound check scheduled for 48-72 hours and the patient was given written postop instructions. Signed by : Quentin Norman, Electronically Approved : 08/04/2020 13:40:04
== END ==
LOC: VNUS 12:43
PROVIDERS: ATTEND Internal Medicine Cardiovascular Disease
DX: I83.891 Varicose veins of right lower extremity with other complications (principal); I87.2 Venous insufficiency (chronic) (peripheral); I80.3 Phlebitis and thrombophlebitis of lower extremities, unspecified; I10 Essential (primary) hypertension; E11.9 Type 2 diabetes mellitus without complications; E78.00 Pure hypercholesterolemia, unspecified; Z88.5 Allergy status to narcotic agent; Z88.8 Allergy status to other drugs, medicaments and biological substances; Z79.899 Other long term (current) drug therapy; Z79.84 Long term (current) use of oral hypoglycemic drugs
CPT/HCPCS: 36482

== ENCOUNTER → 2020-08-05 | Outpatient (CLI) | payer MEDICARE ==
--- NOTE | 2020-08-05 13:59 | RAD ---
MR#: [id number] Date of Study: 08/05/2020 Ordering Physician: QUENTIN RICO, Referring Physician: QUENTIN RICO, Tech: Ruthie Chávez RDMS, JUANT, RTR APPROVED REPORT Right Lower Extremity Venous Study for DVT Patient Location: OUT-PATIENT Indications Varicose Veins Post OP Vena Seal Ablation Right GSV; Venous Insufficiency Findings Grayscale images of the right saphenofemoral junction are grossly unremarkable. The deep veins of the right lower extremity including the common femoral, superficial femoral and pop liteal veins appear to be compressible and no evidence of thrombus is noted with spontaneous flow. T he below-knee veins were not well visualized but appear to demonstrate spontaneous flow. The right great saphenous vein is thrombosed consistent with recent ablation therapy. Critical Notification Critical Value: No <Conclusion> 1. Successful right great saphenous vein ablation 2. No right lower extremity DVT Signed by : Alvarez Lam, Electronically Approved : 08/05/2020 13:58:44
== END ==
LOC: US 10:58
PROVIDERS: ATTEND Internal Medicine Cardiovascular Disease
DX: I87.2 Venous insufficiency (chronic) (peripheral) (principal); I73.9 Peripheral vascular disease, unspecified
CPT/HCPCS: 93971